=== PATIENT | male | born 1985 | race Caucasian/White ===

== ENCOUNTER → 2024-02-29 21:54 | Outpatient (CLI) | payer OTHER, SELFPAY ==
--- NOTE | 2024-02-29 | DI.RAD_ITS ---
Exam(s) XR KNEE LT 3V AP,LAT,CRISTÓBAL EXAM: XR KNEE LT 3V AP,LAT,CRISTÓBAL CLINICAL HISTORY: PAIN OF L KNEE JOINT, M25.562. TECHNIQUE: 2D digital imaging was performed. Three views. COMPARISON: No exams were available for comparison FINDINGS: BONES: No acute fracture is present. No bony destructive lesion is seen. JOINTS: The knee is normally aligned. No joint effusion is seen. The joint spaces are maintained. SOFT TISSUE: Venous varicosities. IMPRESSION: No acute abnormality. DATA REPOSITORY: RADIATION DOSE DELIVERED:
--- NOTE | 2024-02-29 16:23 | DI.VRAD_ITS ---
PROCEDURE INFORMATION: Exam: XR Left Knee Exam date and time: 02/29/2024 3:54 PM Age: 38 years old Clinical indication: Other: Pain of L knee joint, m25.562 TECHNIQUE: Imaging protocol: Radiologic exam of the left knee. Views: 3 views. COMPARISON: No relevant prior studies available. FINDINGS: Bones/joints: Small joint effusion. Normal bone mineralization. No evidence for fracture or dislocation. Soft tissues: Unremarkable. IMPRESSION: No evidence for acute bony injury. Small joint effusion. If clinical symptoms persist recommend followup film in 7-10 days. Dictated and Authenticated by: Shala Merino MD. Ordering:DAYNE Venegas MD
== END ==
PROVIDERS: Visit Provider Physician Assistant Medical
DX: M25.562 Pain in left knee (principal)
CPT/HCPCS: 73562

== ENCOUNTER 2024-03-19 03:17 | Outpatient (CLI) | payer OTHER, SELFPAY ==
[2024-03-19 14:38] LABS: Abs Immature Grans 0.03 10^3/uL (0.0-0.06); Absolute Basophil Count 0.06 10^3/uL (0.0-0.2); Absolute Eosinophil Count 0.22 10^3/uL (0.0-0.7); Absolute Lymphocyte Count 1.65 10^3/uL (1.2-3.4); Absolute Monocyte Count 0.37 10^3/uL (0.1-0.8); Absolute Neutrophil Count 4.17 10^3/uL (1.2-6.7); Basophils % 0.9 %; Eosinophils % 3.4 %; HCT 44.2 % (40.0-50.0); HGB 15.7 g/dL (13.5-17.5); Immature Grans % 0.5 %; Lymphocytes % 25.4 %; MCH 29.8 pg (27.0-33.0); MCHC 35.5 % (32.0-36.0); MCV 84 fL (80-95); Monocytes % 5.7 %; Neutrophils % 64.1 %; Platelet Count 235 10^3/uL (130-400); RBC 5.26 10^6/uL (4.36-5.78); RDW 12.4 % (11.8-14.1); RDW-SD 37.6 fL
[2024-03-19 14:46] LABS: ESR < 1 mm/hr (0-15)
[2024-03-19 14:54] LABS: ALT 32 U/L (16-63); Alkaline Phosphatase 75 U/L (46-116); Anion Gap 6.7 mmol/L (3-11); BUN 18 mg/dL (7-18); Bilirubin, Total 0.45 mg/dL (0.2-1.0); CO2 29.3 mmol/L (21.0-32.0); Calcium 9.3 mg/dL (8.5-10.1); Chloride 105 mmol/L (98-107); Estimated GFR 98.18 (mL/min/1.73m2); Glucose 99 mg/dL (74-106); Potassium 3.8 mmol/L (3.5-5.1); Sodium 141 mmol/L (136-145); Total Protein 7.2 g/dL (6.4-8.2)
[2024-03-19 14:55] LABS: C-Reactive Protein < 0.50 mg/dL (<or=0.5)
[2024-03-19 15:19] LABS: AST 15 U/L (15-37)
[2024-03-19 21:49] LABS: Rheumatoid Factor <8.6 IU/mL (<12.0)
[2024-03-20 07:46] LABS: Cyclic Citrullinated Peptide <2.5 U/mL (<5.0)
[2024-03-20 09:54] LABS: Lyme Ab w Rflx to Lyme Confirm Negative (Negative)
[2024-03-20 15:18] LABS: ANA Interpretation Negative (Negative)
[2024-03-21 18:37] LABS: Anaplasma phagocytophilum Negative (Negative); B. miyamotoi PCR Negative (Negative); Babesia divergens/MO-1 Negative (Negative); Babesia duncani Negative (Negative); Babesia microti Negative (Negative); Ehrlichia chaffeensis Negative (Negative); Ehrlichia ewingii/canis Negative (Negative); Ehrlichia muris eauclairensis Negative (Negative)
== END 2024-03-19 03:18 | disposition home or self-care (01) ==
LOC: LBO 03:17
PROVIDERS: Visit Provider Student in an Organized Health Care Education/Training Program
DX: M25.562 Pain in left knee (principal); M25.50 Pain in unspecified joint
CPT/HCPCS: 36415; 80053; 85652; 86200; 87798; 85025; 86038; 86140; 86431; 86618

== ENCOUNTER 2024-05-04 00:32 | Outpatient (CLI) | payer OTHER, SELFPAY ==
--- OUTSIDE RECORDS SUMMARY | 2024-05-04 00:33 | XMS_ITS | Referral Summary ---
Author Organization [facility] Address [address] [place] [address] Care Team Providers Care Forensic Technician Name Role Phone Unavailable Primary Care Provider Unavailabl e Encounters Date Type Department Care Team Description 03/19/2024 Lab Requisition [facility] Pathology & Laboratory Medicine - [facility] [address] [place] [address] Outr Resulting Lab, Provider from Last 3 Months Social History Tobacco Use Types Packs/Day Years Used Date Smoking Tobacco: Never Assessed Sex and Gender Information Value Date Recorded Sex Assigned at Not on file Gender Identity Not on file Sexual Orientation Not on file Plan of Treatment Not on file Procedures Procedure Name Priority Date/Time Associated Diagnosis Comments LYME AB Routine 03/19/2024 14:05 EDT RHEUMATOID FACTOR Routine 03/19/2024 14: 05 EDT ANTI NUCLEAR AB (DIANNA), IFA Routine 03/19/2024 14:05 EDT CCP ANTIBODIES Routine 03/19/2024 14:05 EDT from Last 3 Months Results * CCP ANTIBODIES (03/19/2024 14:05 EDT) CCP Antibodies <2.5 <5.0 U/mL 03/20/2024 7:41 EDT [facility] Blood VENOUS BLOOD / Unknown 03/19/2024 14:05 EDT 03/19/2024 21:23 EDT Provider Outr Resulting Lab IMMUNOLOGY A ND SEROLOGY ORDERABLES [facility] [address], [place] [id number] * LYME AB (03/19/2024 14:05 EDT) Lyme Ab Negative Negative 03/20/2024 9:51 EDT [facility] Blood VENOUS BLOOD / Unknown 03/19/2024 14:05 EDT 03/19/2024 21:23 EDT Provider Outr Resulting Lab IMMUNOLOGY A ND SEROLOGY ORDERABLES Performing Organization Address City/[facility]/ZIP Co de Phone Number [facility] [address] [place] [address] * RHEUMATOID FACTOR (03/19/2024 14:05 EDT) Pathologist [facility] Rheumatoid Factor <8.6 <12.0 IU/mL 03/19/2024 21:44 EDT [facility] Blood VENOUS BLOOD / Unknown 03/19/2024 14:05 EDT 03/19/2024 21:23 EDT Provider Outr Resulting Lab CHEMISTRY & BLOOD GAS ORDERABLES Performing Organization Address [facility]/ZIP Co de Phone Number [facility] [address] [place] [address] * ANTI NUCLEAR AB (DIANNA), IFA (03/19/2024 14:05 EDT) Pathologist [facility] DIANNA Interpretation Negative Negative 2023 15:13 EDT [facility] Comment:No titer performed, DIANNA Screen is negative. Blood VENOUS BLOOD / Unknown 03/19/2024 14:05 EDT 03/19/2024 21:23 EDT Narrative [facility] - 03/20/2024 15:13 EDT Results were obtained with the [employer] NOVA Lite HEp-2 DIANNA Kit by indirect immunofluorescence. Provider Outr Resulting Lab IMMUNOLOGY A ND SEROLOGY ORDERABLES Performing Organization Address City/[facility]/ZIP Co de Phone Number [facility] [address] [place] [address] from Last 3 Months
--- OUTSIDE RECORDS SUMMARY | 2024-05-04 00:33 | XMS_ITS | Clinical Summary ---
Author Organization [facility] Address [address] [place] [address] Care Team Providers Care Charge Preparation Technician Name Role Phone Unavailable Primary Care Provider Unavailabl e Encounters Date Type Department Care Team Description 03/19/2024 Lab Requisition [facility] Pathology & Laboratory Medicine - [facility] [address] [place] [address] Outr Resulting Lab, Provider from Last 3 [...] Antibodies <2.5 <5.0 U/mL 03/20/2024 7:41 EDT [facility] Blood VENOUS BLOOD / Unknown 03/19/2024 14:05 EDT 03/19/2024 21:23 EDT Provider Outr Resulting Lab IMMUNOLOGY A ND SEROLOGY ORDERABLES [facility] [address] [place], [place] [address] * LYME AB (03/19/2024 14:05 EDT) Lyme Ab Negative Negative 03/20/2024 9:51 EDT [facility] Blood VENOUS BLOOD / Unknown 03/19/2024 14:05 EDT 03/19/2024 21:23 EDT Provider Outr Resulting Lab IMMUNOLOGY A ND SEROLOGY ORDERABLES Performing Organization Address City/[facility]/ZIP Co de Phone Number [facility] [address] [place] [address] * RHEUMATOID FACTOR (03/19/2024 14:05 EDT) Pathologist [facility] Rheumatoid Factor <8.6 <12.0 IU/mL 03/19/2024 21:44 EDT [facility] Blood VENOUS BLOOD / Unknown 03/19/2024 14:05 EDT 03/19/2024 21:23 EDT Provider Outr Resulting Lab CHEMISTRY & BLOOD GAS ORDERABLES Performing Organization Address [facility]/ZIP Co de Phone Number [facility] [address] [place] [address] * ANTI NUCLEAR AB (DIANNA), IFA (03/19/2024 14:05 EDT) Pathologist [facility] DIANNA Interpretation Negative Negative 2023 15:13 EDT [facility] Comment:No titer performed, DIANNA Screen is negative. Blood VENOUS BLOOD / Unknown 03/19/2024 14:05 EDT 03/19/2024 21:23 EDT Narrative [facility] - 03/20/2024 15:13 EDT Results were obtained with the [employer] NOVA Lite HEp-2 DIANNA Kit by indirect immunofluorescence. Provider Outr Resulting Lab IMMUNOLOGY A ND SEROLOGY ORDERABLES Performing Organization Address City/[facility]/ZIP Co de Phone Number [facility] [address] [place] [address] from Last 3 Months
--- OUTSIDE RECORDS SUMMARY | 2024-05-04 00:33 | XMS_ITS | Encounter Summary ---
Author Organization [facility] Address [address] [place] [address] Care Team Providers Care Blast Setter Name Role Phone Unavailable Primary Care Provider Unavailabl e Encounter Details Date Type Department Care Team (Late st Contact Info) Description 03/19/2024 Lab Requisition [facility] Pathology & Laboratory Medicine - [facility] [address], [place] [address] Outr Resulting Lab, Provider Social History Tobacco Use Types Packs/Day Years Used Date Smoking Tobacco: Never Assessed Sex and Gender Information Value Date Recorded Sex Assigned at Not on file Gender Identity Not on file Sexual Orientation Not on file documented as of this encounter Plan of Treatment Not on file documented as of this encounter Procedures Procedure Name Priority Date/Time Associated Diagnosis Comments CCP ANTIBODIES Routine 03/19/2024 14:05 EDT LYME AB Routine 03/19/2024 14:05 EDT RHEUMATOID FACTOR Routine 03/19/2024 14: 05 EDT ANTI NUCLEAR AB (DIANNA), IFA Routine 03/19/2024 14:05 EDT documented in this encounter Results * LYME AB (03/19/2024 14:05 EDT) Lyme Ab Negative Negative 03/20/2024 9:51 EDT [facility] Blood VENOUS BLOOD / Unknown 03/19/2024 14:05 EDT 03/19/2024 21:23 EDT Provider Outr Resulting Lab IMMUNOLOGY A ND SEROLOGY ORDERABLES [facility] [address] [place] [address] * RHEUMATOID FACTOR (03/19/2024 14:05 EDT) Pathologist [facility] Rheumatoid Factor <8.6 <12.0 IU/mL 03/19/2024 21:44 EDT [facility] Blood VENOUS BLOOD / Unknown 03/19/2024 14:05 EDT 03/19/2024 21:23 EDT Provider Outr Resulting Lab CHEMISTRY & BLOOD GAS ORDERABLES [facility] [address] [place] [id number] * ANTI NUCLEAR AB (DIANNA), IFA (03/19/2024 14:05 EDT) Pathologist [facility] DIANNA Interpretation Negative Negative 2023 15:13 EDT [facility] Comment:No titer performed, DIANNA Screen is negative. Blood VENOUS BLOOD / Unknown 03/19/2024 14:05 EDT 03/19/2024 21:23 EDT Narrative [facility] - 03/20/2024 15:13 EDT Results were obtained with the [employer] NOVA Lite HEp-2 DIANNA Kit by indirect immunofluorescence. Provider Outr Resulting Lab IMMUNOLOGY A ND SEROLOGY ORDERABLES Performing Organization Address [facility] Co de Phone Number [facility] [address] [place] [id number] * CCP ANTIBODIES (03/19/2024 14:05 EDT) Pathologist [facility] CCP Antibodies <2.5 <5.0 U/mL 03/20/2024 7:41 EDT [facility] Blood VENOUS BLOOD / Unknown 03/19/2024 14:05 EDT 03/19/2024 21:23 EDT Provider Outr Resulting Lab IMMUNOLOGY A ND SEROLOGY ORDERABLES [facility] [address] [place] [address] documented in this encounter Visit Diagnoses Not on filedocumented in this encounter
--- NOTE | 2024-05-04 07:30 | DI.MRI_ITS ---
Exam(s) MR LOWER JOINT LT WO EXAM: MR LOWER JOINT LT WO CLINICAL HISTORY: left knee pain,M25.562. TECHNIQUE: Multiplanar multisequence MRI was performed. COMPARISON: CR,XR XR KNEE LT 3V AP,LAT,CRISTÓBAL from 02/29/2024 FINDINGS: BONES: There is no fracture or contusion pattern. Mild marrow edema in the anterior medial distal f emur. JOINTS: A moderate-sized joint effusion is present. Articular cartilage: Patellofemoral joint: Patellar cartilage thickness is normal. Focal linear defect visible at the an terior aspect of the medial femoral condyle mild adjacent marrow edema.. Medial femoral tibial joint: Articular cartilage is unremarkable. Lateral femoral tibial joint: Articular cartilage is unremarkable. LIGAMENTS: Anterior Cruciate: Unremarkable. Posterior Cruciate: Unremarkable. Medial Collateral:Unremarkable. Lateral Collateral ligament complex: Unremarkable. TENDONS: Extensor mechanism: Unremarkable. Medial retinaculum: Unremarkable. Lateral retinaculum: Unremarkable. Popliteus: Unremarkable. MENISCI: The medial meniscus is somewhat peripherally displaced but no focal tear is seen. The lateral meniscus is unremarkable. MUSCLES: Unremarkable. SOFT TISSUES: Mild venous varicosities. IMPRESSION: Focal linear defect of the cartilage of the anteromedial aspect of the medial femoral condyle. No di splaced cartilage fragment. Joint effusion. DATA REPOSITORY:
== END 2024-05-04 00:52 ==
LOC: DI 00:32
PROVIDERS: Visit Provider Student in an Organized Health Care Education/Training Program
DX: M25.562 Pain in left knee (principal)
CPT/HCPCS: 73721

== ENCOUNTER 2024-05-29 14:25 | Outpatient (REF) | payer OTHER, SELFPAY ==
[2024-05-29 15:12] LABS: Abs Immature Grans 0.04 10^3/uL (0.0-0.06); Absolute Basophil Count 0.06 10^3/uL (0.0-0.2); Absolute Eosinophil Count 0.14 10^3/uL (0.0-0.7); Absolute Lymphocyte Count 1.82 10^3/uL (1.2-3.4); Absolute Monocyte Count 0.44 10^3/uL (0.1-0.8); Absolute Neutrophil Count 3.98 10^3/uL (1.2-6.7); Basophils % 0.9 %; Eosinophils % 2.2 %; HCT 47.2 % (40.0-50.0); HGB 16.4 g/dL (13.5-17.5); Immature Grans % 0.6 %; Lymphocytes % 28.1 %; MCHC 34.7 % (32.0-36.0); MCV 86 fL (80-95); MPV 8.8 fL (8.0-11.0); Monocytes % 6.8 %; Neutrophils % 61.4 %; Platelet Count 205 10^3/uL (130-400); RBC 5.47 10^6/uL (4.36-5.78); RDW 12.1 % (11.8-14.1); RDW-SD 38.5 fL; WBC 6.48 10^3/uL (4.4-10.8)
[2024-05-29 16:36] LABS: ALT 43 U/L (16-63); AST 26 U/L (15-37); Albumin 4.4 g/dL (3.4-5.0); Alkaline Phosphatase 75 U/L (46-116); Anion Gap 10.3 mmol/L (3-11); BUN 17 mg/dL (7-18); Bilirubin, Total 0.73 mg/dL (0.2-1.0); CO2 27.7 mmol/L (21.0-32.0); CREATININE 0.9 mg/dL (0.70-1.30); Calcium 9.7 mg/dL (8.5-10.1); Chloride 105 mmol/L (98-107); Estimated GFR 111.42 (mL/min/1.73m2); Folate 13.3 ng/mL (8.6-20.0); Glucose 89 mg/dL (74-106); Sodium 143 mmol/L (136-145); TSH 1.45 uIU/mL (0.36-3.74); Total Protein 7.6 g/dL (6.4-8.2); Vitamin B12 533 pg/mL (193-986); Vitamin D 25 Total 21.3 ng/mL (30-100)
== END 2024-05-29 14:26 | disposition home or self-care (01) ==
LOC: NCHCN 14:25
PROVIDERS: Visit Provider Student in an Organized Health Care Education/Training Program
DX: Z13.228 Encounter for screening for other metabolic disorders (principal); E55.9 Vitamin D deficiency, unspecified
CPT/HCPCS: 80053; 82306; 82607; 82746; 84443; 85025

== ENCOUNTER 2024-07-13 01:38 | Outpatient (CLI) | payer OTHER, SELFPAY ==
[2024-07-13 14:14] LABS: ESR < 1 mm/hr (0-15)
[2024-07-13 14:54] LABS: C-Reactive Protein < 0.50 mg/dL (<or=0.5)
[2024-07-16 10:31] LABS: Syphilis Serology (RPR) Negative (Negative)
[2024-07-16 11:05] LABS: Free Retinol (Vitamin A) 60.2 mcg/dL (32.5-78.0)
[2024-07-16 11:16] LABS: Tissue Transglutaminase IgA <4.0 CU (<20.0)
[2024-07-16 12:06] LABS: HIV-1/2 Ag & Ab Screen Negative (Negative)
[2024-07-17 14:44] LABS: Tissue Transglutaminase Ab IgG 3.1 U/mL
[2024-07-20 15:02] LABS: Pantothenic Acid (VitB5), S 87.82 ug/L
== END 2024-07-13 01:39 | disposition home or self-care (01) ==
LOC: LBO 01:42
PROVIDERS: PCP Student in an Organized Health Care Education/Training Program; Visit Provider Student in an Organized Health Care Education/Training Program
DX: R21 Rash and other nonspecific skin eruption (principal); K92.1 Melena; Z11.4 Encounter for screening for human immunodeficiency virus [HIV]; Z11.3 Encounter for screening for infections with a predominantly sexual mode of transmission; R20.8 Other disturbances of skin sensation
CPT/HCPCS: 36415; 84591; 85652; 86364; 87389; 84590; 86140; 86592

== ENCOUNTER 2024-07-13 14:59 | Outpatient (REF) | payer OTHER, SELFPAY | END 2024-07-13 15:00 | disposition home or self-care (01) | LOC: NCHCN 14:59 | PROVIDERS: PCP Student in an Organized Health Care Education/Training Program; Visit Provider Student in an Organized Health Care Education/Training Program | DX: R21 Rash and other nonspecific skin eruption (principal); K92.1 Melena | CPT/HCPCS: 82272; 83630 ==

== ENCOUNTER 2024-07-18 10:38 | Outpatient (REF) | payer OTHER, SELFPAY ==
[2024-07-23 17:24] LABS: Calprotectin <50.0 mcg/g
== END 2024-07-18 10:39 | disposition home or self-care (01) ==
LOC: NCHCN 10:38
PROVIDERS: PCP Student in an Organized Health Care Education/Training Program; Visit Provider Student in an Organized Health Care Education/Training Program
DX: K92.1 Melena (principal)
CPT/HCPCS: 83993

== ENCOUNTER 2025-01-17 16:31 | Outpatient (REF) | payer OTHER, SELFPAY ==
--- NOTE | 2025-01-17 15:30 | SKI_PTH ---
PATIENT: Lenard Sommers LOC: [facility]#:[id number] AGE/SX: 39/M ROOM: RE01/17/[address]: Harrison Mayes : 1985 BED: DIS: 01/17/2025 SPEC #: [id number] RECD: 01/17/25 18:24 STATUS: JAX REQ #: [id number] KETAN: 01/17/25 15:[address]: Harrison Mayes DEPT: Surgical Specimen RECD BY: Ifeoma Means Tissues: 1 - SKIN BIOPSY(SHAVE/PUNCH) Procedures: SKIN LEVEL 4 Comments: [id number]
== END 2025-01-17 16:32 | disposition home or self-care (01) ==
LOC: NCHCN 16:31
PROVIDERS: PCP Student in an Organized Health Care Education/Training Program; Visit Provider Student in an Organized Health Care Education/Training Program
DX: L30.8 Other specified dermatitis (principal); K21.00 Gastro-esophageal reflux disease with esophagitis, without bleeding
CPT/HCPCS: 88305